=== PATIENT | male | born 1995 | race Caucasian/White ===

== ENCOUNTER 2020-06-24 04:43 | Emergency (ER) | payer BC, OTHER ==
[2020-06-24] MEDS ORDERED: Tetracaine HCl/PF 0.5% 4 ML Bottle EYELF STA (05:01)
[2020-06-24] MEDS ORDERED: Ciprofloxacin 0.3% Ophth Soln 5 ML Bottle EYELF SCH (05:15)
--- NOTE | 2020-06-24 05:22 | EDM.PDOC ---
ED HPI GENERAL MEDICAL PROBLEM - General Chief Complaint: ENT Problem Stated Complaint: LEFT EYE PROBLEM Time Seen by Provider: 06/24/20 04:49 - History of Present Illness INITIAL COMMENTS - FREE TEXT/NARRATIVE: History of present illness: [] Patient was working under his brother's car. Something fell into his eye. He flushed it out as best could including flushing up under the lid. This is been successful whenever he got anything in his eye before. However he continues to have the foreign body sensation under his upper lid in the middle of it. It is a little painful. There is irritation and erythema. The patient has no other symptoms. Review of systems: As per history of present illness and below otherwise all systems reviewed and negative. Past medical history: As per history of present illness and as reviewed below otherwise noncontributory. Surgical history: As per history of present illness and as reviewed below otherwise noncontributory. Social history: No reported history of drug or alcohol abuse. Family history: As per history of present illness and as reviewed below otherwise noncontributory. Physical exam: Constitutional - well developed, well-nourished and in no acute distress HEENT - normocephalic, no evidence of trauma - external nose and mouth normal - no mass in neck and no JVD - mucosae moist EYES - full EOM, PERRL, no icterus - no evidence of inflammation, injection, or drainage to the right eye. Left eye has injected conjunctiva both palpebral and bulbar. Lid eversion reveals no foreign body. Patient has fluorescein exam that reveals no foreign body and no abrasion. Respiratory - no respiratory distress, equal bilateral expansion Musculoskeletal no gross deformity of long bones or joints - no tenderness, swelling or edema Neurologic - Alert and oriented times four - CN II-XII grossly intact - motor sensory and coordination symmetrically normal Psychiatric - appropriate mood and affect with normal thought content Integument - no rash or evidence of trauma - normal turgor Diagnostics: [] Therapeutics: [] Impression: [] Plan: [] Definitive disposition and diagnosis as appropriate pending reevaluation and review of above. left eye Pain Score (Numeric/FACES): 10 - Related Data Allergies Allergy/AdvReac Type Severity Reaction Status Date / Time No Known Allergies Allergy Verified 06/24/20 05:00 Home Meds: Home Meds . [No Known Home Meds] 06/24/20 [History] ED ROS GENERAL - Review of Systems Review Of Systems: Comprehensive ROS is negative, except as noted in HPI. ED EXAM, GENERAL - Physical Exam Exam: See Below Free Text/Narrative:: Physical exam is in the HPI Course - Vital Signs Text/Narrative:: My impression is that the patient had foreign matter in his eye. Of course it was not sterile. He has inflammation and subsequent conjunctivitis. Needs antibiotic coverage and ophthalmology follow-up. Last Recorded V/S: Last Vital Signs Temp 36.6 C 06/24/20 05:00 Pulse 72 06/24/20 05:00 Resp 18 06/24/20 05:00 BP 131/83 06/24/20 05:00 Pulse Ox 98 06/24/20 05:00 - Orders/Labs/Meds Orders: Active Orders 24 hr Category Date Time Status Ciprofloxacin [Ciloxan 0.3% Ophth Soln] Med 06/24/20 05:15 Ordered 0.3 ml EYELF Q4H Meds: Medications Discontinued Medications Generic Name Dose Route Start Last Admin Trade Name Cindy PRN Reason Stop Dose Admin Tetracaine HCl 2 ml 06/24/20 05:01 Tetracaine Hcl/Pf 0.5% 4 Ml Bottle EYELF 06/24/20 05:02 NOW STA Departure - Departure Time of Disposition: 05:30 Disposition: Home, Self-Care 01 Condition: Good Clinical Impression: Foreign body, eye, Conjunctivitis of left eye - Discharge Information Instructions: Eye Foreign Body, [id number] Referrals: PCP,None [Primary Care Provider] - Additional Instructions: Use drops to prevent or treat infection. Expect improvement over 24 hours. See optometry or ophthalmology for [address] if no bett Call Dr. Manning if you have problems today otherwise call on the 10th and see him if you are not completely better. [facility] - Primary Care [address] [place] [id number] [facility] [address] [place] [address] The following information is given to patients seen in the emergency department who are being discharged to home. This information is to outline your options for follow-up care. We provide all patients seen in our emergency department with a follow-up referral. The need for follow-up, as well as the timing and circumstances, are variable depending upon the specifics of your emergency department visit. If you don't have a primary care physician on staff, we will provide you with a referral. We always advise you to contact your personal physician following an emergency department visit to inform them of the circumstance of the visit and for follow-up with them and/or the need for any referrals to a consulting specialist. The emergency department will also refer you to a specialist when appropriate. This referral assures that you have the opportunity for follow-up care with a specialist. All of these measure are taken in an effort to provide you with optimal care, which includes your follow-up. Under all circumstances we always encourage you to contact your private physician who remains a resource for coordinating your care. When calling for fo llow-up care, please make the office aware that this follow-up is from your recent emergency room visit. If for any reason you are refused follow-up, please contact the [facility] Emergency Department at and asked to speak to the emergency department charge nurse. Sepsis Event Note (ED) - Evaluation Sepsis Screening Result: No Definite Risk - Focused Exam Vital Signs: Vital Signs Temp Pulse Resp BP Pulse Ox 06/24/20 05:00 36.6 C 72 18 131/83 98 - My Orders Last 24 Hours: My Active Orders 06/24/20 05:15 Ciprofloxacin [Ciloxan 0.3% Ophth Soln] 0.3 ml EYELF Q4H - Assessment/Plan Last 24 Hours: My Active Orders 06/24/20 05:15 Ciprofloxacin [Ciloxan 0.3% Ophth Soln] 0.3 ml EYELF Q4H
== END 2020-06-24 05:50 | disposition home or self-care (01) ==
LOC: MW.ED 04:43
DX: T15.92XA Foreign body on external eye, part unspecified, left eye, initial encounter (principal); H10.9 Unspecified conjunctivitis
CPT/HCPCS: 99283; A9270